=== PATIENT | female | born 1975 | race Caucasian/White ===

== ENCOUNTER 2016-11-05 13:46 | Inpatient (IN) | payer OTHER ==
[~2016-11-05] VITALS: Ht 167.6 cm; Wt 111.1 kg
[~2016-11-05 13:46] MED LIST: OXYC-360 PO; PREN0.01 PO
[2017-01-06] VITALS (13 sets, daily range): BP systolic 100–134; BP diastolic 55–75; PULSE 75–98; RESP 16–49; TEMP 97.8–98.4; O2SAT 98–100
[2017-01-06] MEDS ORDERED: CITRIC ACID-SODIUM CITRATE LIQ 30 ML UDC PO SCH (05:45)
[2017-01-06] MEDS ORDERED: LACTATED RINGER'S 1000 ML IV SCH (05:45)
[2017-01-06] MEDS ORDERED: LACTATED RINGER'S 1000 ML IV ONE (05:45)
[2017-01-06] MEDS ORDERED: ceFAZolin 2 GM PREMIX 50 ML IV SCH (05:45)
[2017-01-06 06:12] LABS: BASOPHIL % 0.5 % (0.0-2.0); EOSINOPHIL % 0.4 % (0.0-4.0); HEMATOCRIT 36.6 % (35.0-46.0); HEMO FLAGS DIFF FINAL; LYMPH % 16.5 % (9.0-44.0); LYMPHOCYTE # 1.6 TH/MM3 (1.0-4.8); MEAN CELL VOLUME 86.8 FL (80.0-100.0); MEAN CORPUSCULAR HEMOGLOBIN 30.1 PG (27.0-34.0); MEAN CORPUSCULAR HGB CONC 34.7 % (32.0-36.0); MONO % 12.3 % (0.0-8.0); NEUT % 70.3 % (16.0-70.0); PLATELET COUNT 208 TH/MM3 (150-450); RED BLOOD COUNT 4.22 MIL/MM3 (4.00-5.30); RED CELL DISTRIBUTION WIDTH 13.1 % (11.6-17.2); WHITE BLOOD COUNT 9.9 TH/MM3 (4.0-11.0)
[2017-01-06 06:30] LABS: BACTERIA, URINE RARE /hpf; BLOOD, URINE NEG (NEG); COMMENT (UR) CULT NOT INDICATED; CULTURE IF INDICATED CULT NOT INDICATED; GLUCOSE,URINE NEG (NEG); KETONE, URINE NEG (NEG); NITRITE,URINE NEG (NEG); SQUAMOUS EPITHELIAL CELL URINE 5 /hpf (0-5); URINE COLOR YELLOW (YELLW/STRAW)
[2017-01-06] MEDS ORDERED: OXYTOCIN 10 UNIT/ML AMP ONE (07:17)
[2017-01-06] MEDS ORDERED: EPIDURAL-DO NOT ADMINISTER ANTICOAGULANTS PRN (07:40)
[2017-01-06] MEDS ORDERED: EPIDURAL-DIPHENHYDRAMINE HCL 50 MG CAP PO PRN (07:40)
[2017-01-06] MEDS ORDERED: EPIDURAL-NALOXONE HCL 0.4 MG/ML AMP IV PRN (07:40)
[2017-01-06] MEDS ORDERED: EPIDURAL-NO SYSTEMIC NARCOTICS PRN (07:40)
[2017-01-06] MEDS ORDERED: EPIDURAL-DIPHENHYDRAMINE HCL 50 MG/ML VIAL IV PUSH PRN (07:40)
[2017-01-06] MEDS ORDERED: MORPHINE SULFATE PF 5 MG/10 ML VIAL ONE (07:47)
[2017-01-06] MEDS ORDERED: ONDANSETRON HCL 4 MG/2 ML VIAL ONE (07:47)
[2017-01-06] MEDS ORDERED: ACETAMINOPHEN 1000 MG/100 ML VIAL IV ONE (07:47)
[2017-01-06] MEDS ORDERED: SODIUM CHLORIDE 0.9% FLUSH 10 ML FLUSH IV FLUSH PRN (08:45)
[2017-01-06] MEDS ORDERED: ONDANSETRON HCL 4 MG/2 ML VIAL IV PUSH PRN (08:45)
[2017-01-06] MEDS ORDERED: oxyCODONE/ACETAMINOPHEN 5 MG/325 MG TAB PO PRN (08:45)
[2017-01-06] MEDS ORDERED: ACETAMINOPHEN 325 MG TAB PO PRN (08:45)
[2017-01-06] MEDS ORDERED: KETOROLAC TROMETHAMINE 60 MG/2 ML (IM) VIAL IM PRN (08:45)
[2017-01-06] MEDS ORDERED: SIMETHICONE 80 MG CHEWABLE TAB PO PRN (08:45)
[2017-01-06] MEDS: SODIUM CHLORIDE 0.9% FLUSH 10 ML FLUSH IV FLUSH SCH (09:00)
[2017-01-06] MEDS ORDERED: OXYTOCIN 30 UNITS-500ML PREMIX 500 ML IV ONE (09:00)
[2017-01-06] MEDS ORDERED: OXYTOCIN 30 UNITS-500ML PREMIX 500 ML ONE (09:04)
[2017-01-06] MEDS ORDERED: LACTATED RINGER'S 1000 ML INJ 1,000 ML IV SCH (13:37)
[2017-01-06] MEDS ORDERED: DIPHTH/TETANUS/ACEL PERTUSSIS (BOOSTER) 0.5 ML VIAL/PFS IM ONE (17:00)
[2017-01-06] MEDS ORDERED: OXYTOCIN 30 UNITS-500ML PREMIX 500 ML IV PRN (18:45)
[2017-01-07] VITALS: BP 110/63; PULSE 78; RESP 18; TEMP 98.2
[2017-01-07 03:30] VITALS: BP 110/70; PULSE 80; RESP 17; TEMP 97.5
[2017-01-07 06:08] LABS: AUTOMATED NEUTROPHIL # 6.9 TH/MM3 (1.8-7.7); BASOPHIL % 0.3 % (0.0-2.0); EOSINOPHIL # 0.1 TH/MM3 (0-0.4); EOSINOPHIL % 0.7 % (0.0-4.0); HEMO FLAGS DIFF FINAL; LYMPH % 15.1 % (9.0-44.0); LYMPHOCYTE # 1.5 TH/MM3 (1.0-4.8); MEAN CELL VOLUME 88.2 FL (80.0-100.0); MEAN CORPUSCULAR HEMOGLOBIN 30.3 PG (27.0-34.0); MEAN CORPUSCULAR HGB CONC 34.3 % (32.0-36.0); MONO % 11.8 % (0.0-8.0); NEUT % 72.1 % (16.0-70.0); PLATELET COUNT 182 TH/MM3 (150-450); RED BLOOD COUNT 3.63 MIL/MM3 (4.00-5.30); RED CELL DISTRIBUTION WIDTH 13.4 % (11.6-17.2); WHITE BLOOD COUNT 9.6 TH/MM3 (4.0-11.0)
--- NOTE | 2017-01-07 08:08 | HHI.OB ---
Subjective Post Operative Day: 1 Remarks no complaints, OOB, +flatus Objective Vitals/I&O Vital Signs Date Time Temp Pulse Resp B/P Pulse Ox O2 Delivery O2 Flow Rate FiO2 01/07/17 03:30 80 17 110/70 01/07/17 03:30 97.5 01/07/17 00:00 98.2 78 18 110/63 01/06/17 20:24 98.1 79 49 01/06/17 20:24 111/73 01/06/17 20:24 16 01/06/17 15:15 98.4 75 18 112/64 01/06/17 10:11 98.0 80 18 01/06/17 10:11 129/55 01/06/17 09:46 97.8 01/06/17 09:46 75 16 117/59 99 01/06/17 09:35 80 19 115/67 99 01/06/17 09:15 86 18 120/68 98 01/06/17 09:05 99 01/06/17 09:05 85 18 110/72 01/06/17 08:50 103/75 01/06/17 08:50 85 18 100 01/06/17 08:35 100/56 01/06/17 08:35 98 01/06/17 08:35 83 18 Result Diagram: 01/07/17 0501 Objective Remarks GENERAL: Well-nourished, well-developed patient. CARDIOVASCULAR: Regular rate and rhythm without murmurs, gallops, or rubs. RESPIRATORY: Breath sounds equal bilaterally. No accessory muscle use. ABDOMEN/GI: Abdomen soft, non-tender, bowel sounds present. Incision: cher Clean, dry and intact. Fundus: Firm, non-tender at umbilicus. GENITOURINARY: Light to moderate bleeding. EXTREMITIES: No cyanosis or edema, non-tender, without signs of DVT. Medications and IVs Current Medications Medications (Trade) Dose Ordered Sig/Susy Route Start Time Stop Time Status Last Admin (Lr 1000 ml Inj) 1,000 ml @ 100 mls/hr Q10H IV 01/06/17 13:37 01/07/17 09:36 (NS Flush) 2 ml BID IV FLUSH 01/06/17 09:00 (NS Flush) 2 ml UNSCH PRN IV FLUSH 01/06/17 08:45 (Mylicon Chew) 80 mg QID PRN PO 01/06/17 08:45 (Tylenol) 650 mg Q6H PRN PO 01/06/17 08:45 (Motrin) 600 mg Q6H PRN PO 01/06/17 08:45 (Percocet 5-325 Mg) 1 tab Q4H PRN PO 01/06/17 08:45 (Percocet 5-325 Mg) 2 tab Q4H PRN PO 01/06/17 08:45 (Lorin-Colace) 2 tab Q12H PRN PO 01/06/17 08:45 (M-M-R Ii Inj) 0.5 ml ONCE ONCE SQ 01/07/17 16:00 01/07/17 16:01 (Zofran Inj) 4 mg Q6H PRN IV PUSH 01/06/17 08:45 Assessment/Plan Problem List: (1) S/P repeat low transverse Assessment and Plan POD #1 s/p repeat LSTC, BTL Discharge Planning routine Attending Attestation pt seen by Kusum Yan MD Jan 07, 2017 08:08
[2017-01-07 08:25] VITALS: BP 123/70; PULSE 84; RESP 18; TEMP 98.2
[2017-01-07] MEDS: DOCUSATE SODIUM 50 MG/SENNA 8.6 MG TAB PO PRN (08:26)
[2017-01-07] MEDS: IBUPROFEN 600 MG TAB PO PRN ×3 (08:26→22:01)
[2017-01-07] MEDS: oxyCODONE/ACETAMINOPHEN 5 MG/325 MG TAB PO PRN ×3 (08:26→22:01)
[2017-01-07] MEDS: SODIUM CHLORIDE 0.9% FLUSH 10 ML FLUSH IV FLUSH SCH (09:00)
[2017-01-07] MEDS ORDERED: MEASLES, MUMPS, RUBELLA VACCINE 0.5 ML VIAL SQ ONE (16:00)
[2017-01-07 20:00] VITALS: BP 120/71; PULSE 90; RESP 18; TEMP 97.9
[2017-01-08] MEDS: oxyCODONE/ACETAMINOPHEN 5 MG/325 MG TAB PO PRN (07:46)
[2017-01-08] MEDS: DOCUSATE SODIUM 50 MG/SENNA 8.6 MG TAB PO PRN (07:46)
[2017-01-08] MEDS: IBUPROFEN 600 MG TAB PO PRN (07:46)
[2017-01-08 07:48] VITALS: BP 133/87; PULSE 86; RESP 18; TEMP 98.5
--- NOTE | 2017-01-08 08:33 | HHI.OB ---
Subjective Post Operative Day: 2 Remarks Ambulating, voiding, passing gas. Pain well controlled. Feeling sore from tetanus shot. Objective Vitals/I&O Vital Signs Date Time Temp Pulse Resp B/P Pulse Ox O2 Delivery O2 Flow Rate FiO2 01/08/17 07:48 86 133/87 01/08/17 07:48 98.5 18 01/07/17 20:00 120/71 01/07/17 20:00 97.9 90 18 Result Diagram: 01/07/17 0501 Objective Remarks GENERAL: Well-nourished, well-developed patient. CARDIOVASCULAR: Regular rate and rhythm without murmurs, gallops, or rubs. RESPIRATORY: Breath sounds equal bilaterally. No accessory muscle use. ABDOMEN/GI: Abdomen soft, non-tender, bowel sounds present. Incision: cher Clean, dry and intact. Fundus: Firm, non-tender at umbilicus. GENITOURINARY: Light to moderate bleeding. EXTREMITIES: No cyanosis or edema, non-tender, without signs of DVT. Medications and IVs Current Medications Medications (Trade) Dose Ordered Sig/Susy Route Start Time Stop Time Status Last Admin (NS Flush) 2 ml BID IV FLUSH 01/06/17 09:00 (NS Flush) 2 ml UNSCH PRN IV FLUSH 01/06/17 08:45 (Mylicon Chew) 80 mg QID PRN PO 01/06/17 08:45 (Tylenol) 650 mg Q6H PRN PO 01/06/17 08:45 (Motrin) 600 mg Q6H PRN PO 01/06/17 08:45 01/08/17 07:46 (Percocet 5-325 Mg) 1 tab Q4H PRN PO 01/06/17 08:45 01/08/17 07:46 (Percocet 5-325 Mg) 2 tab Q4H PRN PO 01/06/17 08:45 (Lorin-Colace) 2 tab Q12H PRN PO 01/06/17 08:45 01/08/17 07:46 (Zofran Inj) 4 mg Q6H PRN IV PUSH 01/06/17 08:45 Assessment/Plan Problem List: (1) S/P repeat low transverse Assessment and Plan POD #2 s/p repeat LSTC, BTL Doing well, desires to be d/c today. Wound care and postop precautions reviewed. Will f/u in office on wednesday for staple removal Discharge Planning routine Mariam Shepard MD Jan 08, 2017 08:33
[2017-01-08] MEDS ORDERED: SENN1TAB PO (08:34)
[2017-01-08] MEDS ORDERED: IBUP-232 PO (08:34)
[2017-01-08] MEDS ORDERED: OXYC1TAB63 PO (08:34)
--- NOTE | 2017-01-08 08:34 | HHI.DCPOC ---
Discharge Care Plan Diagnosis: (1) S/P repeat low transverse Your Health Problems Are: delivery Report Symptoms to Your Doctor -Temperature above 100.5 degrees -Redness, of incision or excessive or foul smelling drainage -Unusual pain or calf pain -Increased vaginal bleeding -Painful or difficulty urinating -Feelings of extreme sadness or anxiety after 2 weeks Goals to Promote Your Health * To prevent worsening of your condition and complications * To maintain your health at the optimal level Directions to Meet Your Goals Take your medications as prescribed Follow your dietary instruction Follow activity as directed Ensure plenty of rest for recovery Drink fluids for hydration Keep your appointments as scheduled Take your immunizations and boosters as scheduled If your symptoms worsen call your PCP, if no PCP go to Urgent Care Center or Emergency Room Smoking is Dangerous to Your Health. Avoid second hand smoke Call the 24-hour crisis hotline for domestic abuse at Mariam Shepard MD Jan 08, 2017 08:34
--- NOTE | 2017-01-08 10:26 | MP ---
cc: CHEYENNE BRYANT MD DATE OF SURGERY: 01/06/2017 PREOPERATIVE DIAGNOSIS Intrauterine at 39 weeks, previous section, desires repeat as well as permanent sterilization. POSTOPERATIVE DIAGNOSIS Intrauterine at 39 weeks, previous section, desires repeat as well as permanent sterilization. PROCEDURE Repeat lower segment transverse section via Pfannenstiel skin incision, bilateral tubal ligation via modified [place]. SURGEON Dr. Bryant ANESTHESIA Spinal. FLUIDS 800 ccs crystalloid. ESTIMATED BLOOD LOSS 600 ccs. URINE OUTPUT 100 ccs clear yellow at the end of the procedure. FINDINGS A live male was delivered vertex presentation, Apgars 8 at 1 minute, 8 at 5 minutes. weight was 7-14. PROCEDURE The patient was taken to the operating room where spinal anesthesia was found to be adequate. She was then prepped and draped in the normal sterile fashion in the dorsal supine position with a leftward tilt. A Pfannenstiel skin incision was made with a scalpel and carried down to the underlying layer of fascia. The fascia was nicked in the midline and the incision was extended laterally with curved Tamayo scissors. Attention was turned to the inferior aspect of the incision which was grasped with Sophie clamps, elevated and the rectus muscle was dissected off sharply. Attention was turned to the superior aspect of the incision which was grasped with Sophie clamps, elevated and the rectus muscle was dissected off sharply. The rectus muscles were in the midline. The peritoneum was identified, grasped between two Lovely clamps, elevated and entered sharply with Metzenbaum scissors. This incision was extended superiorly and inferiorly with good visualization of the bladder. The bladder blade was inserted and the vesicouterine peritoneum was identified, grasped with pickups and entered sharply with Metzenbaum scissors. This incision was extended laterally and bladder flap created sharply. The lower uterine segment was incised in a transverse fashion with a scalpel. The incision was extended laterally with bandage scissors. Clear amniotic fluid was noted. The vertex was delivered. The oral and nasopharynx were bulb suctioned with a syringe. The shoulders were delivered atraumatically. The cord was clamped x2 and cut. The was handed off to the waiting nurse. Placenta was delivered manually. The uterus was cleared of all clots and debris. The uterine incision was repaired in two layers with one Vicryl. Hemostasis was assured. The left fallopian tube was identified, grasped with Gualberto clamp, followed out to the fimbriated end. The 2-cm portion was tied x2 with O plain and excised. The tube was returned to the abdomen and the right fallopian tube was then grasped with a Gualberto clamp, followed out to fimbriated end and a 2-cm portion was tied with O plain and excised and sent to pathology. The tube was returned to the abdomen. The gutters were cleared of all clots and debris. The fascia was reapproximated in a running fashion with 0 Vicryl. The skin was closed with cher. Pressure dressing was applied. The sponge, lap, needle and instrument counts were correct x3. The patient was transferred to the recovery room in stable condition. MD CANDIDO Jones/ORALIA /8:39 AM /10:15 AM KAYCE
== END 2017-01-08 12:05 | disposition home or self-care (01) | DRG 766 ==
LOC: H2EB 01-06 05:25 → H1EA 01-06 10:04
PROVIDERS: ADMIT Obstetrics & Gynecology; ATTEND Obstetrics & Gynecology
PROC: 10D00Z1 Extraction of Products of Conception, Low, Open Approach (ICD-10-PCS; principal; 2017-01-06)
PROC: 0UB70ZZ Excision of Bilateral Fallopian Tubes, Open Approach (ICD-10-PCS; 2017-01-06)
DX: O34.219 Maternal care for unspecified type scar from previous cesarean delivery (principal); Z30.2 Encounter for sterilization; Z3A.39 39 weeks gestation of pregnancy; Z37.0 Single live birth
CPT/HCPCS: 59025; 81001; 85025; 85461; 86850; 86900; 86901; 88302; 90384; 90715; J0131; J0690; J2274; J2405; J2590; J2790; J7120